=== PATIENT | female | born 1975 | race Caucasian/White ===

== ENCOUNTER 2020-09-03 16:59 | Emergency (ER) | payer OTHER, MEDICAID ==
[~2020-09-03] VITALS: Ht 162.6 cm; Wt 104.3 kg
[2020-09-03] MEDS ORDERED: NAPROSYN500 M1 PO (17:24)
[2020-09-03] MEDS ORDERED: HYDROCHLOROTHIA25 M2 PO (17:25)
[2020-09-03] MEDS ORDERED: XANAX1 MG PO (17:25)
[2020-09-03] MEDS ORDERED: FLEXERIL PO (17:25)
[2020-09-03] MEDS ORDERED: PROAIR HFA8.5 GM INH ×2 (17:25→19:02)
[2020-09-03] MEDS ORDERED: DULERA 100 MCG/13 GM INH (17:25)
[2020-09-03] MEDS ORDERED: NOVOLOG MI100 UNIT/2 SUBQ (17:26)
[2020-09-03] MEDS ORDERED: LANTUS SUBQ (17:26)
[2020-09-03] MEDS ORDERED: FAMOTIDINE 20 M20 MG PO (17:26)
[2020-09-03 18:34] LABS: ABSOLUTE BASOPHILS 0.1 thou/uL (0.0-0.2); ABSOLUTE EOSINOPHILS 0.7 thou/uL (0.0-0.7); ABSOLUTE LYMPHOCYTES 4.1 thou/uL (0.8-5.3); ABSOLUTE MONOCYTES 0.6 thou/uL (0.0-1.2); ABSOLUTE NEUTROPHILS 7.1 thou/uL (1.6-8.1); BASOPHILS 0.9 %; EOSINOPHILS 5.7 %; HEMATOCRIT 38.8 % (37.0-47.0); HEMOGLOBIN 13.2 gm/dL (12.0-15.0); LYMPHOCYTES 32.6 %; MCV 88.2 fL (80.0-100.0); MONOCYTES 4.7 %; MPV 7.8 fl. (7.2-11.1); NUCLEATED RBCS 0 /100WBC; PLATELET COUNT* 326 thou/uL (150-400); POLYS 56.1 %; RBC 4.39 mil/uL (4.20-5.00); RDW-CV 12.9 % (10.5-14.5); WBC 12.7 thou/uL (4.0-11.0)
[2020-09-03 18:48] LABS: CALCIUM 8.6 mg/dL (8.5-10.1); CREATININE 0.8 mg/dL (0.6-1.3); POTASSIUM 3.9 mmol/L (3.5-5.1)
[2020-09-03 18:53] LABS: ALBUMIN 3.3 g/dL (3.4-5.0); TOTAL BILIRUBIN 0.2 mg/dL (<0.1-1.0); TOTAL PROTEIN 6.6 g/dL (6.4-8.2)
[2020-09-03] MEDS ORDERED: CLARITIN10 MG PO (19:02)
[2020-09-03] MEDS ORDERED: MEDROLDOSEPACK PO (19:02)
[2020-09-03 20:36] VITALS: BP 116/68
--- NOTE | 2020-09-04 13:33 | EKG ---
[place] [address] ELECTROCARDIOGRAM REPORT Name: Room: [facility] Carl#: [id number] Admission: 09/03/20 Attend Phys: Discharge: 09/03/20 Date of : 75 Date of Service: 09/03/201813 Report #: [id number] THIS REPORT FOR: //name// [facility] ED Test Date: 2020-09-03 Test Time: 18:14:20 Pat Name: November Department: Room: Gender: F [employer] Attendant: [facility] : 1975 Requested By: Richard Hammer Order Number: [id number] MD: Jose Carlos Moeller Measurements Intervals [place] Rate: 79 P: 57 WI: 150 QRS: 51 QRSD: 101 T: 47 QT: 412 QTc: 473 Interpretive Statements Sinus rhythm Borderline T abnormalities, anterior leads No previous ECG available for comparison Electronically Signed On 09-04-2020 13:33:30 [employer] by Jose Carlos Moeller [email or web address] <ELECTRONICALLY SIGNED> By: Jose Carlos Moeller MD, [facility] 09/04/20 1333 13 13 Jose Carlos Moeller MD, FACC /EPI
== END 2020-09-03 20:36 | disposition home or self-care (01) ==
LOC: M.ERS 16:59
PROVIDERS: Nurse Practitioner Family
DX: R51.9 Headache, unspecified (principal); M94.0 Chondrocostal junction syndrome [Tietze]; E11.9 Type 2 diabetes mellitus without complications; J45.909 Unspecified asthma, uncomplicated; Z90.49 Acquired absence of other specified parts of digestive tract; Z90.710 Acquired absence of both cervix and uterus; Z79.4 Long term (current) use of insulin; Z76.0 Encounter for issue of repeat prescription; Z79.899 Other long term (current) drug therapy; Z88.8 Allergy status to other drugs, medicaments and biological substances; Z20.828 Contact with and (suspected) exposure to other viral communicable diseases

== ENCOUNTER 2021-03-25 19:45 | Emergency (ER) | payer OTHER, MEDICAID ==
[~2021-03-25] VITALS: Ht 160 cm; Wt 108.9 kg
[~2021-03-25 19:45] MED LIST: CLARITIN10 MG PO; DULERA 100 MCG/13 GM INH; FAMOTIDINE 20 M20 MG PO; FLEXERIL PO; HYDROCHLOROTHIA25 M2 PO; LANTUS SUBQ; MEDROLDOSEPACK PO; NAPROSYN500 M1 PO; NOVOLOG MI100 UNIT/2 SUBQ; PROAIR HFA8.5 GM INH; XANAX1 MG PO
[2021-03-25] MEDS ORDERED: LIPITOR10 MG PO (19:58)
[2021-03-25] MEDS ORDERED: HYDROCODON-ACE1 EAC7 PO (21:11)
[2021-03-25] MEDS ORDERED: NORCO5 PO ×2 (21:26→21:29)
[2021-03-25 21:46] VITALS: BP 135/64
== END 2021-03-25 21:47 | disposition home or self-care (01) ==
LOC: M.ERS 19:45
DX: S93.492A Sprain of other ligament of left ankle, initial encounter (principal); E11.9 Type 2 diabetes mellitus without complications; J45.909 Unspecified asthma, uncomplicated; Z90.710 Acquired absence of both cervix and uterus; Z90.49 Acquired absence of other specified parts of digestive tract; Z98.890 Other specified postprocedural states; Z88.8 Allergy status to other drugs, medicaments and biological substances; Z79.4 Long term (current) use of insulin; W18.39XA Other fall on same level, initial encounter; Y93.89 Activity, other specified; Y92.89 Other specified places as the place of occurrence of the external cause; Y99.8 Other external cause status

== ENCOUNTER 2021-08-22 14:50 | Emergency (ER) | payer OTHER, MEDICAID ==
[~2021-08-22 14:50] MED LIST changes: +HYDROCODON-ACE1 EAC7 PO; +LIPITOR10 MG PO; +NORCO5 PO
[2021-08-22 15:03] VITALS: BP 129/72
== END 2021-08-22 15:54 | disposition left against medical advice (07) ==
LOC: M.RAD 14:50 → M.ERS 14:50 → M.RAD 15:54
DX: U07.1 COVID-19 (principal); Z53.21 Procedure and treatment not carried out due to patient leaving prior to being seen by health care provider

== ENCOUNTER → 2021-09-06 | Outpatient (CLI) | payer OTHER, MEDICAID | LOC: M.RAD 11:45 | PROVIDERS: ATTEND Registered Nurse Diabetes Educator | DX: R05.9 Cough, unspecified (principal); U07.1 COVID-19; J12.82 Pneumonia due to coronavirus disease 2019 ==